=== PATIENT | female | born 1950 | race Caucasian/White ===

== ENCOUNTER 2017-02-04 05:40 | Inpatient (IN) ==
[2017-02-04] MEDS ORDERED: VANCOMYCIN 1,000 MG VIAL ONE (05:55)
[2017-02-04] MEDS ORDERED: SODIUM CHLORIDE 0.9% 100 ML IV ONE (05:55)
[2017-02-04] MEDS ORDERED: ceFAZolin 1,000 MG VIAL ONE (05:55)
[2017-02-04] MEDS ORDERED: VANCOMYCIN INJ 1,000 MG in SODIUM CHLORIDE 0.9% 250 ML IV ONE (06:00)
[2017-02-04] MEDS: LACTATED RINGERS 1,000 ML IV SCH ×3 (06:19→18:02)
[2017-02-04] MEDS ORDERED: TRANEXAMIC ACID 1,000 MG/10 ML VIAL IV ONE (06:54)
[2017-02-04] MEDS ORDERED: PROPOFOL 200 MG/20 ML VIAL IV ONE (07:04)
[2017-02-04] MEDS ORDERED: LIDOCAINE 2% 5 ML VIAL ONE (07:04)
--- NOTE | 2017-02-04 07:08 | History and Physical Update ---
History and Physical Update - History and Physical H&P was reviewed, the patient examined and there: are no changes in the patients condition since last H&P was completed.
[2017-02-04] MEDS ORDERED: diphenhydrAMINE CAP 25 MG CAPSULE PO PRN (07:10)
[2017-02-04] MEDS ORDERED: PROMETHAZINE 25 MG/1 ML VIAL IM PRN (07:10)
[2017-02-04] MEDS ORDERED: HYDROmorphone 2 MG/1 ML VIAL IV PRN (07:10)
[2017-02-04] MEDS ORDERED: ONDANSETRON 4 MG/2 ML VIAL IV PRN (07:10)
[2017-02-04] MEDS ORDERED: MAGNESIUM HYDROXIDE SUSP 30 ML UDCUP PO PRN (07:10)
[2017-02-04] MEDS ORDERED: TEMAZEPAM 7.5 MG CAPSULE PO PRN (07:10)
[2017-02-04] MEDS ORDERED: ROPIVACAINE 0.5% 30 ML VIAL ONE ×2 (08:36→08:37)
[2017-02-04] MEDS ORDERED: BACLOFEN 10 MG TABLET PO SCH (09:00)
[2017-02-04] MEDS ORDERED: amLODIPine 10 MG TABLET PO SCH (09:00)
[2017-02-04] MEDS ORDERED: VENLAFAXINE 75 MG TABLET PO SCH (09:00)
[2017-02-04] MEDS ORDERED: KETAMINE 500 MG/10 ML VIAL ONE (09:06)
[2017-02-04] MEDS ORDERED: MORPHINE 10 MG/10 ML VIAL ONE (09:06)
[2017-02-04] MEDS ORDERED: MIDAZOLAM 2 MG/2 ML VIAL ONE (09:06)
[2017-02-04] MEDS ORDERED: LACTATED RINGERS 1,000 ML IV ONE (09:06)
[2017-02-04] MEDS ORDERED: HYDROmorphone PCA 30 MG/30 ML SYRINGE IV ONE (09:15)
[2017-02-04] MEDS: HYDROmorphone PCA 30 MG/30 ML SYRINGE IV SCH (09:22)
--- NOTE | 2017-02-04 09:36 | XRay Report ---
XR knee 2V RT Indication: Knee arthroplasty Comparison: None available Findings: Right knee arthroplasty has been performed and appears in good alignment. No periprosthetic fracture seen. Impression: Expected postoperative appearance of the right knee. PROCEDURE INTERPRETED AT [facility] DEPARTMENT OF RADIOLOGY Final Report Signed by: Dr. Jonathan Crain
--- NOTE | 2017-02-04 10:22 | Orthopedic Progress Note ---
Orthopedics - Subjective Interval history: Postop check. Good block. Comfortable. Neurovascular intact. Discussed. PT to get up this afternoon Exam - Constitutional Vitals: Period Temp Pulse Resp BP Sys/Mckenna Pulse Ox Last 24 Hr 98 F-98.1 F 60-89 16-20 103-132/56-76 96-100
[2017-02-04] MEDS: ceFAZolin 2,000 MG in PREMIX 1 EACH IV SCH ×2 (14:28→22:34)
[2017-02-04] MEDS: LOSARTAN/HCTZ 50-12.5 MG TABLET PO SCH (14:32)
[2017-02-04] MEDS: PRAVASTATIN 40 MG TABLET PO SCH (14:32)
[2017-02-04] MEDS: CYANOCOBALAMIN 500 MCG TABLET PO SCH (14:42)
[2017-02-04] MEDS: ASPIRIN EC 81 MG TABLET PO SCH (14:42)
[2017-02-04] MEDS: ASCORBIC ACID 500 MG TABLET PO SCH (14:42)
[2017-02-04] MEDS: MULTIVITAMIN (CENTRUM) TABLET PO SCH (14:42)
[2017-02-04] MEDS: CHOLECALCIFEROL 1,000 UNIT TABLET PO SCH (14:43)
[2017-02-04] MEDS: DOCUSATE SODIUM 100 MG CAPSULE PO SCH ×2 (14:55→20:40)
[2017-02-04] MEDS: MELOXICAM 7.5 MG TABLET PO SCH (14:56)
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
[2017-02-04] MEDS ORDERED: hydrOXYzine HCL 25 MG TABLET PO PRN (17:04)
[2017-02-04] MEDS ORDERED: methylPREDNISolone SOD SUC 40 MG/1 ML VIAL IV ONE (17:05)
[2017-02-04] MEDS: VENLAFAXINE 75 MG TABLET PO SCH (20:40)
--- NOTE | 2017-02-05 00:56 | Operative Note ---
DATE OF SURGERY: 02/04/2017 PREOPERATIVE DIAGNOSIS: OSTEOARTHRITIS, RIGHT KNEE. POSTOPERATIVE DIAGNOSIS: SAME. OPERATIVE PROCEDURE: RIGHT TOTAL KNEE ([place]) SURGEON: Aaron Chow Jr., MD CLASS A TRUCK DRIVER: Dr. Hernandez ANESTHESIA: Spinal INDICATION: A 66-year-old white female with longstanding degenerative arthritis to the right knee. She has maximized conservative treatments options to the years including multiple medications and i njection. She has recently decided to proceed with elective arthroplasty of the right knee. OPERATIVE PROCEDURE: The patient was taken to the operating room, and under spinal anesthetic, posi tioned in the supine position. The right leg was positioned, prepped and draped in the usual steril e manner. The limb was elevated and exsanguinated and the tourniquet inflated 250 mmHg. She receiv ed preoperative antibiotic. A midline incision was made anterior aspect of the right knee. Sharp d issection was carried down through skin and subcutaneous tissue. Medial and parapatellar arthrotomy performed. The knee revealed extensive tricompartmental degenerative changes with large effusion. Intramedullary alignment guide was used to make the appropriate cuts about the distal femur and pro ximal tibia. The femur and tibia both were sized to a 5. A 6-mm spacer was selected with PCL retai fiordaliza. The patella resurfaced with a 35 button. After removal of the trial components, the knee was irrigated and all three components were cemented into place. After the cement hardened, the wound wa s closed with over two 1/8 inch Hemovac drains in a standard fashion using #1 Vicryl for the arthrot keri, 2-0 Vicryl for the subcutaneous layer, and ya for skin. Tourniquet was deflated during wo und closure at 33 minutes. Sterile dressing applied. She was taken to the Recovery Room in a stabl e condition.
[2017-02-05] MEDS: FONDAPARINUX 2.5 MG/0.5 ML SYRINGE SUBCUT SCH (02:29)
[2017-02-05] MEDS: LACTATED RINGERS 1,000 ML IV SCH ×3 (02:47→21:59)
[2017-02-05 02:51] LABS: Basophils % 0.3 % (0.0-0.8); Eosinophils # 0.1 10*3/uL (0.0-0.87); Eosinophils % 1.1 % (0.00-10.9); Hematocrit 33.5 VOL% (35.7-47.0); Hemoglobin 11.2 GM/DL (12.0-16.0); Immature Granulocytes % 0.5 %; Immature Granulocytes Absolute 0.06 #; Lymphocytes # 2.3 10*3/uL (1.4-4.0); Lymphocytes % 17.7 % (21.3-54.2); Mean Corpuscular HGB Conc 33.4 GM/DL (32-36); Mean Corpuscular Hemoglobin 32 PG (27-34); Mean Corpuscular Volume 94.4 FL (87-102); Mean Platelet Volume 9.8 FL (9.6-12.0); Monocytes # 1.3 10*3/uL (0.11-0.8); Monocytes % 10.4 % (1.7-12.7); Neutrophils # 8.9 10*3/uL (1.4-7.4); Platelet Count 223 T/CUMM (130-400); Red Blood Count 3.55 MC/CUMM (3.8-5.5); Red Cell Distribution Width 12.3 % (9.3-17.3); White Blood Count 12.7 T/CUMM (4-12)
[2017-02-05 03:12] LABS: Calcium 8.5 MG/DL (8.5-10.1); Osmolality,Calculated 274.8 MOS/KG (273-304)
[2017-02-05] MEDS: HYDROmorphone PCA 30 MG/30 ML SYRINGE IV SCH (07:50)
--- NOTE | 2017-02-05 08:38 | Orthopedic Progress Note ---
Orthopedics - Subjective Interval history: Comfortable already up in chair drain removed hemoglobin 11.2. nvi, Ready to start PT wishing to go home with home health early next week. Exam - Constitutional Vitals: Period Temp Pulse Resp BP Sys/Mckenna Pulse Ox Last 24 Hr 97.9 F-101.1 F 60-109 14-20 105-157/54-83 90-100 Results - Labs CBC & BMP: 02/05/17 02:17 02/05/17 02:17
--- NOTE | 2017-02-05 09:41 | Family Practice Progress Note ---
Family Practice - PN: Subj Interval history: Patient seen this morning. She is stable doing well she is having the right knee pain. Her hemoglobin hematocrit 11 and 33.5. Blood sugars are normal. Patient is very alert and oriented in good spirits otherwise. She has been going to the bathroom without difficulty. Her vital signs are stable except for slight elevation of pulse rate 106. Afebrile this morning Exam (Progress Note) - Constitutional Vitals: Period Temp Pulse Resp BP Sys/Mckenna Pulse Ox Last 24 Hr 97.9 F-101.1 F 60-109 14-20 114-157/54-83 90-98 Exam: Physical exam grossly unchanged. HEENT is negative Cardiovascular is regular no gallop or rub Lungs clear patient is using the incentive spirometry Abdomen soft nondistended Extremities no clubbing cyanosis and she does have brace on the right knee with a clean and dry Dressing Results - Labs CBC & BMP: 02/05/17 02:17 02/05/17 02:17 Assessment and Plan (1) Status post right total knee replacement Status: Acute Assessment and plan: 02/05/2017 the right knee is doing well. She is having moderate pain but well controlled with medication Current Visit: Yes (2) Type 2 diabetes mellitus diet controlled Status: Chronic Assessment and plan: 02/03/2017: Blood sugars are good Current Visit: Yes
[2017-02-05] MEDS: CYANOCOBALAMIN 500 MCG TABLET PO SCH (09:45)
[2017-02-05] MEDS: LOSARTAN/HCTZ 50-12.5 MG TABLET PO SCH (09:47)
[2017-02-05] MEDS: PRAVASTATIN 40 MG TABLET PO SCH (09:47)
[2017-02-05] MEDS: MELOXICAM 7.5 MG TABLET PO SCH (09:48)
[2017-02-05] MEDS: ASPIRIN EC 81 MG TABLET PO SCH (09:48)
[2017-02-05] MEDS: CHOLECALCIFEROL 1,000 UNIT TABLET PO SCH (09:48)
[2017-02-05] MEDS: DOCUSATE SODIUM 100 MG CAPSULE PO SCH ×2 (09:48→20:40)
[2017-02-05] MEDS: ASCORBIC ACID 500 MG TABLET PO SCH (09:48)
[2017-02-05] MEDS: MULTIVITAMIN (CENTRUM) TABLET PO SCH (09:48)
[2017-02-05] MEDS: BACLOFEN 10 MG TABLET PO SCH (20:40)
[2017-02-05] MEDS: amLODIPine 10 MG TABLET PO SCH (20:40)
[2017-02-05] MEDS: VENLAFAXINE 75 MG TABLET PO SCH (20:40)
[2017-02-05] MEDS ORDERED: VENLAFAXINE XR 75 MG CAPSULE PO SCH (21:00)
[2017-02-06] MEDS: FONDAPARINUX 2.5 MG/0.5 ML SYRINGE SUBCUT SCH (01:23)
[2017-02-06 04:36] LABS: Basophils % 0.2 % (0.0-0.8); Eosinophils # 0.1 10*3/uL (0.0-0.87); Eosinophils % 0.9 % (0.00-10.9); Hematocrit 32.4 VOL% (35.7-47.0); Hemoglobin 10.7 GM/DL (12.0-16.0); Immature Granulocytes % 0.5 %; Immature Granulocytes Absolute 0.06 #; Lymphocytes # 1.6 10*3/uL (1.4-4.0); Lymphocytes % 13.9 % (21.3-54.2); Mean Corpuscular Hemoglobin 32 PG (27-34); Mean Corpuscular Volume 95.9 FL (87-102); Mean Platelet Volume 9.8 FL (9.6-12.0); Monocytes # 1.3 10*3/uL (0.11-0.8); Monocytes % 10.9 % (1.7-12.7); Neutrophils # 8.5 10*3/uL (1.4-7.4); Neutrophils % 73.6 % (38.7-73.9); Platelet Count 202 T/CUMM (130-400); Red Blood Count 3.38 MC/CUMM (3.8-5.5); Red Cell Distribution Width 12.1 % (9.3-17.3); White Blood Count 11.6 T/CUMM (4-12)
--- NOTE | 2017-02-06 10:19 | Family Practice Progress Note ---
Family Practice - PN: Subj Interval history: Patient stable no acute distress. Her knee is much better this morning she is able to angulate some and the pain is tolerable. H&H is 10 and 32 and stable and her blood sugars are normal. She is in good spirits Exam (Progress Note) - Constitutional Vitals: Period Temp Pulse Resp BP Sys/Mckenna Pulse Ox Last 24 Hr 99.1 F-100.5 F 94-102 16-20 130-160/56-77 91-97 Exam: Physical exam grossly unchanged. HEENT is negative Cardiovascular is regular no gallop or rub Lungs clear patient is using the incentive spirometry Abdomen soft nondistended Extremities no clubbing cyanosis and she does have brace on the right knee with a clean and dry Results - Labs CBC & BMP: 02/06/17 04:03 02/05/17 02:17 Assessment and Plan (1) Status post right total knee replacement Status: Acute Assessment and plan: 02/05/2017 the right knee is doing well. She is having moderate pain but well controlled with medication 02/06/2017 she is improving slowly on leg is without any significant pain Current Visit: Yes (2) Type 2 diabetes mellitus diet controlled Status: Chronic Assessment and plan: 02/03/2017: Blood sugars are good Current Visit: Yes
--- NOTE | 2017-02-06 10:27 | Orthopedic Progress Note ---
Orthopedics - Subjective Interval history: Doing well with PT. DIRECTOR MEDICAL today pain well controlled with p.o. Continue rehab. to home with home health soon Exam - Constitutional Vitals: Period Temp Pulse Resp BP Sys/Mckenna Pulse Ox Last 24 Hr 99.1 F-100.5 F 94-102 16-20 130-160/56-77 91-97 Results - Labs CBC & BMP: 02/06/17 04:03 02/05/17 02:17
[2017-02-06] MEDS: MELOXICAM 7.5 MG TABLET PO SCH (11:30)
[2017-02-06] MEDS: CHOLECALCIFEROL 1,000 UNIT TABLET PO SCH (11:30)
[2017-02-06] MEDS: MULTIVITAMIN (CENTRUM) TABLET PO SCH (11:32)
[2017-02-06] MEDS: DOCUSATE SODIUM 100 MG CAPSULE PO SCH ×2 (11:32→20:27)
[2017-02-06] MEDS: ASCORBIC ACID 500 MG TABLET PO SCH (11:32)
[2017-02-06] MEDS: ASPIRIN EC 81 MG TABLET PO SCH (11:33)
[2017-02-06] MEDS: LOSARTAN/HCTZ 50-12.5 MG TABLET PO SCH (11:34)
[2017-02-06] MEDS: PRAVASTATIN 40 MG TABLET PO SCH (11:34)
[2017-02-06] MEDS: CYANOCOBALAMIN 500 MCG TABLET PO SCH (12:06)
[2017-02-06] MEDS: HYDROmorphone PCA 30 MG/30 ML SYRINGE IV SCH (13:07)
[2017-02-06] MEDS: VENLAFAXINE 75 MG TABLET PO SCH (20:26)
[2017-02-06] MEDS: amLODIPine 10 MG TABLET PO SCH (20:27)
[2017-02-06] MEDS: BACLOFEN 10 MG TABLET PO SCH (20:27)
[2017-02-07] MEDS: FONDAPARINUX 2.5 MG/0.5 ML SYRINGE SUBCUT SCH (02:33)
[2017-02-07] MEDS: CHOLECALCIFEROL 1,000 UNIT TABLET PO SCH (08:59)
[2017-02-07] MEDS: MULTIVITAMIN (CENTRUM) TABLET PO SCH (08:59)
[2017-02-07] MEDS: CYANOCOBALAMIN 500 MCG TABLET PO SCH (08:59)
[2017-02-07] MEDS: ASPIRIN EC 81 MG TABLET PO SCH (09:00)
[2017-02-07] MEDS: LOSARTAN/HCTZ 50-12.5 MG TABLET PO SCH (09:00)
[2017-02-07] MEDS: DOCUSATE SODIUM 100 MG CAPSULE PO SCH (09:00)
[2017-02-07] MEDS: MELOXICAM 7.5 MG TABLET PO SCH (09:00)
[2017-02-07] MEDS: ASCORBIC ACID 500 MG TABLET PO SCH (09:00)
[2017-02-07] MEDS: PRAVASTATIN 40 MG TABLET PO SCH (09:01)
--- NOTE | 2017-02-07 10:06 | Physician Query Form ---
CLICK EDIT DOCUMENT TO SELECT QUERY ANSWER --> OK --> SIGN Elma Batista RN Clinical Day Care Teacher W) [phone] (f) [phone] [email or web address] PROVIDERS: Make your selection(s) from the choices in EACH section by typing an "x" and enter comments in the comment section. Please use your independent medical judgment in providing your response. This request does not imply that any particular answer is desired or expected. 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 [facility]
--- NOTE | 2017-02-07 10:20 | Pathology Report from [facility] ---
ACCESSION # : [id number] PATIENT NAME : Sunny Moe ORDERING DR : PRIYANKA NOVAK JR, MD CLINICAL HX: Right knee osteoarthritis POST-OP DX: Same SPECIMEN INFO: Right knee bone and tissue GROSS DESCRIPTION: The specimen is received in formalin labeled with the patient 's name and consists of fragments of bone, cartilage and soft tissue measuring approximately 13.8 x 14.9 cm. The articular surfaces are grossly degenerative with subchondral eburnation present measuring up to 1.4 cm as well as serosal cartilage lipping. Supervisor Poultry Processing tissue submitted in one cassette. DIAGNOSIS FOR SUNNY MOE: RIGHT KNEE BONE AND TISSUE: Gross and microscopic findings consistent with osteoarthritis. SERVICE DATE: 02/04/2017 REPORT DATE: 02/07/2017 PATHOLOGIST: Yo Benavides III, M.D. MTDD
--- NOTE | 2017-02-07 11:15 | Orthopedic Progress Note ---
Orthopedics - Subjective Interval history: Doing well ready for home health discharged today Exam - Constitutional Vitals: Period Temp Pulse Resp BP Sys/Mckenna Pulse Ox Last 24 Hr 97.8 F-99.0 F 83-93 16-20 123-141/62-69 90-97 Results - Labs CBC & BMP: 02/06/17 04:03 02/05/17 02:17 Specialty Discharge - Follow Up or Referrals
--- NOTE | 2017-02-07 11:18 | Discharge Summary ---
Hospital Course - Hospital Course Hospital Course: Admitted for elective right total knee uncomplicated course discharged home Diagnosis - Discharge Diagnosis (1) Osteoarthritis of right knee Status: Acute Specialty Discharge - Follow Up or Referrals Discharge Plan - Discharge Data Disposition: Home Health Service Condition at Discharge: Stable Discharge Diet: advance to your usual diet Activity: ambulate only with your walker, as per physical therapy Hygiene: may shower, keep area(s) dry Weight Bearing at Discharge: weight bear as tolerated Driving: not until seen by doctor - Discharge Medications New HYDROcodone/ACETAMIN 7.5-325 [[place] 7.5-325] 1 tablet PO Q4H PRN #30 tablet PRN Reason: Pain Moderate (4-7) Continue Meloxicam 15 mg PO DAILY Aspirin EC Tab 81 mg PO DAILY Amlodipine Besylate 10 mg PO DAILY Cyanocobalamin (Vitamin B-12) [Vitamin B12] 2,500 mcg PO DAILY Cholecalciferol (Vitamin D3) [Vitamin D3] 2,000 unit PO DAILY Ascorbic Acid Tab [Vitamin C Tab] 500 mg PO DAILY Multivitamin [Multivitamins] 1 each PO DAILY Losartan/Hydrochlorothiazide [Losartan-Hctz 100-25 mg Tab] 1 each PO DAILY Pravastatin Sodium 40 mg PO DAILY Baclofen 10 mg PO DAILY Venlafaxine HCl [Effexor XR] 150 mg PO BEDTIME - Follow Up or Referral - Forms/Instructions Instructions: Total Knee Replacement (DC) Additional Discharge Instructions: Discharged home with home health continue home medications including aspirin 325 mg once a day diet as tolerated [place] for pain weightbearing as tolerated with home health and routine knee replacement protocol with CPM. Give Arixtra dose prior to discharge. Jeanna to be removed and wound Steri-Stripped February 18. Follow-up 4 weeks Exam - Constitutional Vitals: Period Temp Pulse Resp BP Sys/Mckenna Pulse Ox Last 24 Hr 97.8 F-99.0 F 83-93 16-20 123-141/62-69 90-97 Discharge Results Labs on day of discharge: Labs from last 24 hours 02/07/17 02/06/17 06:52 20:25 POC Glucose 105 112 H DS: Provider Date of admission: 02/04/17 05:40 Primary care physician: Mitch Schwab DO Attending physician on admission: Aaron Chow Jr., MD Consults: 02/04/17 07:10 Consult to Case Mgmt/Social Srvs [CONS] Routine Reason for Case Mgmt/Social Srvs: Rehab Home Health Equipment Consult Comment: Bedside Commode, CPM; Del to Room 319; Pt 5ft 4in 236lbs Consult to Occupational Therapy [CONS] Routine Reason for Occupational Therapy: Evaluate and Treat Consult Comment: ADL's Consult to Physical Therapy [CONS] Routine Reason for Physical Therapy: Evaluate and Treat Gait Training 02/04/17 07:12 Consult to Physician [CONS] Routine Comment: Consulting Provider: Mitch Schwab Consulting Provider Notified: Yes When should Consulting Provider be notified: Now Person Notified: antoine red Date Notified: 02/04/17 Time Notified: 10:39 02/04/17 10:13 Consult to Pastoral Services [CONS] Routine Comment: Pastoral Screen: Request Director Of Exhibit Development Visit Pastoral Screen Source of Request: Patient 02/04/17 11:16 Consult to Pharmacy [CONS] Routine Reason for Pharmacy Consult: Adjust Meds Renal Funct 02/04/17 13:58 Consult to Physical Therapy [CONS] Routine Reason for Physical Therapy: Other Consult Comment: Deliver Standard Walker to Pt's room 319 before discharged home Discharging clinician: Aaron Chow Jr., MD
[2017-02-07 11:29] VITALS: BP 131/56
== END 2017-02-07 13:19 | disposition home health service (06) | DRG 470 ==
LOC: N.SDSINP 05:40 → N.3E 09:47
PROVIDERS: ADMIT Orthopaedic Surgery; ATTEND Orthopaedic Surgery

== ENCOUNTER 2017-11-29 05:49 | Inpatient (IN) ==
[2017-11-29] MEDS ORDERED: ceFAZolin 1,000 MG in SYRINGE 1 EACH IV ONE (06:00)
[2017-11-29] MEDS ORDERED: VANCOMYCIN INJ 1,000 MG in SODIUM CHLORIDE 0.9% 250 ML IV ONE (06:00)
[2017-11-29] MEDS ORDERED: VANCOMYCIN 1,000 MG VIAL ONE (06:35)
[2017-11-29] MEDS ORDERED: ceFAZolin 1,000 MG VIAL ONE (06:35)
[2017-11-29] MEDS ORDERED: TRANEXAMIC ACID 1,000 MG/10 ML VIAL IV ONE (06:56)
[2017-11-29] MEDS ORDERED: LACTATED RINGERS 1,000 ML IV SCH (07:00)
[2017-11-29] MEDS ORDERED: BISACODYL 10 MG SUPP RECTAL PRN (07:05)
[2017-11-29] MEDS ORDERED: diphenhydrAMINE CAP 25 MG CAPSULE PO PRN (07:05)
[2017-11-29] MEDS ORDERED: PROMETHAZINE 25 MG/1 ML VIAL IM PRN (07:05)
[2017-11-29] MEDS ORDERED: ONDANSETRON 4 MG/2 ML VIAL IV PRN (07:05)
[2017-11-29] MEDS ORDERED: NALOXONE 0.4 MG/ML VIAL IV PRN (07:05)
[2017-11-29] MEDS ORDERED: LACTULOSE 20 GM/30 ML UDCUP PO PRN (07:05)
[2017-11-29] MEDS ORDERED: MAGNESIUM HYDROXIDE SUSP 30 ML UDCUP PO PRN (07:05)
[2017-11-29] MEDS ORDERED: MORPHINE 2 MG/1 ML SYRINGE IV PRN ×2 (07:05→11:22)
[2017-11-29] MEDS ORDERED: TEMAZEPAM 7.5 MG CAPSULE PO PRN (07:05)
[2017-11-29] MEDS ORDERED: ROPIVACAINE 0.5% 30 ML VIAL ONE (08:39)
[2017-11-29] MEDS ORDERED: MORPHINE PCA 30 MG/30 ML SYRINGE IV ONE (09:20)
[2017-11-29] MEDS: MORPHINE PCA 30 MG/30 ML SYRINGE IV SCH (09:22)
[2017-11-29] MEDS ORDERED: PROPOFOL 500 MG/50 ML BOTTLE IV ONE (12:19)
[2017-11-29] MEDS ORDERED: PROPOFOL 200 MG/20 ML VIAL IV ONE (12:19)
[2017-11-29] MEDS ORDERED: KETAMINE 500 MG/10 ML VIAL ONE (12:19)
[2017-11-29] MEDS ORDERED: MIDAZOLAM 2 MG/2 ML VIAL ONE (12:19)
[2017-11-29] MEDS: MULTIVITAMIN (CENTRUM) TABLET PO SCH (15:40)
[2017-11-29] MEDS: MULTIVITAMIN (BEROCCA) TABLET PO SCH (15:40)
[2017-11-29] MEDS: ASPIRIN EC 81 MG TABLET PO SCH (15:40)
[2017-11-29] MEDS: PRAVASTATIN 40 MG TABLET PO SCH (15:41)
[2017-11-29] MEDS: GABAPENTIN 100 MG CAPSULE PO SCH ×2 (15:41→21:23)
[2017-11-29] MEDS: ASCORBIC ACID 500 MG TABLET PO SCH (15:41)
[2017-11-29] MEDS: NAPROXEN 500 MG TABLET PO SCH ×2 (15:41→21:23)
[2017-11-29] MEDS: DOCUSATE SODIUM 100 MG CAPSULE PO SCH ×2 (15:41→21:23)
[2017-11-29] MEDS: LOSARTAN/HCTZ 50-12.5 MG TABLET PO SCH (15:41)
[2017-11-29] MEDS: CHOLECALCIFEROL 1,000 UNIT TABLET PO SCH (15:41)
[2017-11-29] MEDS: FONDAPARINUX 2.5 MG/0.5 ML SYRINGE SUBCUT SCH (17:50)
[2017-11-29] MEDS: INSULIN LISPRO 100 UNIT/ML SUBCUT SCH (20:06)
[2017-11-29] MEDS: BACLOFEN 10 MG TABLET PO SCH (21:23)
[2017-11-29] MEDS: amLODIPine 10 MG TABLET PO SCH (21:23)
[2017-11-29] MEDS: VENLAFAXINE XR 75 MG CAPSULE PO SCH (21:23)
[2017-11-30 06:21] LABS: Basophils % 0.3 % (0.0-0.8); Eosinophils # 0.4 10*3/uL (0.0-0.87); Eosinophils % 3.6 % (0.00-10.9); Hematocrit 33.6 VOL% (35.7-47.0); Hemoglobin 11.1 GM/DL (12.0-16.0); Immature Granulocytes % 0.4 %; Immature Granulocytes Absolute 0.05 #; Lymphocytes # 2.2 10*3/uL (1.4-4.0); Lymphocytes % 18.5 % (21.3-54.2); Mean Corpuscular Hemoglobin 32 PG (27-34); Mean Corpuscular Volume 95.5 FL (87-102); Mean Platelet Volume 10.1 FL (9.6-12.0); Monocytes # 1.2 10*3/uL (0.11-0.8); Monocytes % 10.3 % (1.7-12.7); Neutrophils % 66.9 % (38.7-73.9); Platelet Count 212 T/CUMM (130-400); Red Blood Count 3.52 MC/CUMM (3.8-5.5); Red Cell Distribution Width 12.8 % (9.3-17.3); White Blood Count 11.9 T/CUMM (4-12)
[2017-11-30 07:00] LABS: Calcium 8.4 MG/DL (8.5-10.1); Osmolality,Calculated 279.4 MOS/KG (273-304); Potassium 4.1 MMOL/L (3.5-5.1)
[2017-11-30] MEDS: INSULIN LISPRO 100 UNIT/ML SUBCUT SCH ×4 (09:55→21:58)
[2017-11-30] MEDS: MULTIVITAMIN (BEROCCA) TABLET PO SCH (09:57)
[2017-11-30] MEDS: DOCUSATE SODIUM 100 MG CAPSULE PO SCH ×2 (09:57→21:58)
[2017-11-30] MEDS: MULTIVITAMIN (CENTRUM) TABLET PO SCH (09:57)
[2017-11-30] MEDS: ASPIRIN EC 81 MG TABLET PO SCH (09:57)
[2017-11-30] MEDS: LOSARTAN/HCTZ 50-12.5 MG TABLET PO SCH (09:58)
[2017-11-30] MEDS: CHOLECALCIFEROL 1,000 UNIT TABLET PO SCH (09:58)
[2017-11-30] MEDS: PRAVASTATIN 40 MG TABLET PO SCH (09:58)
[2017-11-30] MEDS: NAPROXEN 500 MG TABLET PO SCH ×2 (09:58→21:58)
[2017-11-30] MEDS: GABAPENTIN 100 MG CAPSULE PO SCH ×2 (09:58→21:58)
[2017-11-30] MEDS: ASCORBIC ACID 500 MG TABLET PO SCH (09:58)
[2017-11-30] MEDS: FONDAPARINUX 2.5 MG/0.5 ML SYRINGE SUBCUT SCH (18:11)
[2017-11-30] MEDS: VENLAFAXINE XR 75 MG CAPSULE PO SCH (21:57)
[2017-11-30] MEDS: amLODIPine 10 MG TABLET PO SCH (21:58)
[2017-11-30] MEDS: BACLOFEN 10 MG TABLET PO SCH (21:58)
[2017-12-01 06:56] LABS: Calcium 8.3 MG/DL (8.5-10.1); Osmolality,Calculated 282.3 MOS/KG (273-304)
[2017-12-01] MEDS: INSULIN LISPRO 100 UNIT/ML SUBCUT SCH ×2 (07:36→11:28)
[2017-12-01] MEDS: DOCUSATE SODIUM 100 MG CAPSULE PO SCH (09:16)
[2017-12-01] MEDS: PRAVASTATIN 40 MG TABLET PO SCH (09:16)
[2017-12-01] MEDS: NAPROXEN 500 MG TABLET PO SCH (09:16)
[2017-12-01] MEDS: CHOLECALCIFEROL 1,000 UNIT TABLET PO SCH (09:16)
[2017-12-01] MEDS: LOSARTAN/HCTZ 50-12.5 MG TABLET PO SCH (09:16)
[2017-12-01] MEDS: MULTIVITAMIN (BEROCCA) TABLET PO SCH (09:16)
[2017-12-01] MEDS: GABAPENTIN 100 MG CAPSULE PO SCH (09:16)
[2017-12-01] MEDS: ASPIRIN EC 81 MG TABLET PO SCH (09:16)
[2017-12-01] MEDS: MULTIVITAMIN (CENTRUM) TABLET PO SCH (09:16)
[2017-12-01] MEDS: ASCORBIC ACID 500 MG TABLET PO SCH (09:16)
[2017-12-01 11:24] VITALS: BP 165/67
[2017-12-01] MEDS: FONDAPARINUX 2.5 MG/0.5 ML SYRINGE SUBCUT SCH (13:55)
[2017-12-01] MEDS: MORPHINE PCA 30 MG/30 ML SYRINGE IV SCH (14:22)
== END 2017-12-01 13:57 | disposition home health service (06) | DRG 470 ==
LOC: N.SDSINP 05:49 → N.3E 09:53
PROVIDERS: ADMIT Orthopaedic Surgery; ATTEND Orthopaedic Surgery

== ENCOUNTER 2020-08-08 10:23 | Inpatient (IN) ==
[2020-08-08 11:00] LABS: Basophils # 0.1 10*3/uL (0.0-0.2); Basophils % 0.6 % (0.0-0.8); Eosinophils # 0.1 10*3/uL (0.0-0.87); Eosinophils % 1.3 % (0.00-10.9); Hematocrit 39.5 VOL% (35.7-47.0); Hemoglobin 12.6 GM/DL (12.0-16.0); Immature Granulocytes % 1.4 %; Immature Granulocytes Absolute 0.13 #; Lymphocytes # 2.5 10*3/uL (1.4-4.0); Lymphocytes % 25.6 % (21.3-54.2); Mean Corpuscular HGB Conc 31.9 GM/DL (32-36); Mean Corpuscular Volume 96.1 FL (87-102); Mean Platelet Volume 9.3 FL (9.6-12.0); Monocytes % 7.4 % (1.7-12.7); Neutrophils % 63.7 % (38.7-73.9); PT Patient Result 10.8 SECS (9.8-11.9); Partial Thromboplastin Time 29.1 SECS (23.9-33.8); Platelet Count 282 T/CUMM (130-400); Red Blood Count 4.11 MC/CUMM (3.8-5.5); White Blood Count 9.6 T/CUMM (4-12)
[2020-08-08] MEDS ORDERED: DILTIAZEM 50 MG/10 ML VIAL IV STA ×2 (11:18→11:46)
[2020-08-08] MEDS ORDERED: dilTIAZem Drip 125 MG/125 ML PREMIX IV ONE (11:20)
[2020-08-08 11:21] LABS: Calcium 10.2 MG/DL (8.5-10.1); Total Protein 8.3 G/DL (6.4-8.3)
[2020-08-08] MEDS: dilTIAZem Drip 125 MG/125 ML PREMIX IV SCH ×2 (11:46→16:32)
[2020-08-08] MEDS ORDERED: ACETAMINOPHEN 325 MG TABLET PO PRN (13:13)
[2020-08-08] MEDS ORDERED: ONDANSETRON 4 MG/2 ML VIAL IV PRN (13:13)
[2020-08-08] MEDS: SODIUM CHLORIDE 0.9% 1,000 ML IV SCH ×2 (13:53→22:33)
[2020-08-08] MEDS ORDERED: INFLUENZA VIRUS VACCINE 0.5 ML SYRINGE IM ONE (14:04)
[2020-08-08] MEDS ORDERED: POTASSIUM CHLORIDE 20 MEQ TABLET PO ONE (14:57)
[2020-08-08] MEDS ORDERED: ASCORBIC ACID 500 MG TABLET PO SCH (15:23)
[2020-08-08] MEDS: ENOXAPARIN 120 MG/0.8 ML SYRINGE SUBCUT SCH (15:41)
[2020-08-08] MEDS: METOPROLOL SUCCINATE XL 50 MG TABLET PO SCH ×2 (15:42→21:38)
[2020-08-08 16:01] LABS: Bilirubin,Urine Negative (Negative); Blood, Urine Negative (Negative); Glucose,Urine (UA) Negative (Negative); Ketones,Urine Negative (Negative); Nitrite,Urine Negative (Negative); Protein,Urine Negative; RBC,Urine 1 /HPF (0-4); Urine Appearance CLEAR (Clear); Urine Color Yellow (Yellow); Urine Specific Gravity 1.008 (1.001-1.035); Urine Urobilinogen < 2.0 EU/DL (0.2-1.0); WBC,Urine 1 /HPF (0-6)
[2020-08-08] MEDS ORDERED: ENOXAPARIN 40 MG/0.4 ML SYRINGE SUBCUT SCH (21:00)
[2020-08-08] MEDS: VENLAFAXINE XR 75 MG CAPSULE PO SCH (21:36)
[2020-08-08] MEDS: BACLOFEN 10 MG TABLET PO SCH (21:38)
[2020-08-08] MEDS: DOCUSATE SODIUM 100 MG CAPSULE PO SCH (21:38)
[2020-08-08] MEDS: ASCORBIC ACID 500 MG TABLET PO SCH (22:32)
[2020-08-09] MEDS: ENOXAPARIN 120 MG/0.8 ML SYRINGE SUBCUT SCH (04:01)
[2020-08-09] MEDS: SODIUM CHLORIDE 0.9% 1,000 ML IV SCH (07:46)
[2020-08-09] MEDS: dilTIAZem Drip 125 MG/125 ML PREMIX IV SCH (08:00)
[2020-08-09] MEDS ORDERED: LOSARTAN 50 MG TABLET PO SCH (09:00)
[2020-08-09] MEDS ORDERED: SIMVASTATIN 20 MG TABLET PO SCH (09:00)
[2020-08-09] MEDS: MELOXICAM 7.5 MG TABLET PO SCH (09:12)
[2020-08-09] MEDS: MULTIVITAMIN (BEROCCA) TABLET PO SCH (09:12)
[2020-08-09] MEDS: MULTIVITAMIN (CENTRUM) TABLET PO SCH (09:12)
[2020-08-09] MEDS: CHOLECALCIFEROL 1,000 UNIT TABLET PO SCH (09:13)
[2020-08-09] MEDS: ASCORBIC ACID 500 MG TABLET PO SCH ×3 (09:13→22:18)
[2020-08-09] MEDS: hydroCHLOROthiazide 25 MG TABLET PO SCH (09:13)
[2020-08-09] MEDS: PANTOPRAZOLE 40 MG TABLET PO SCH (09:13)
[2020-08-09] MEDS: LOSARTAN 50 MG TABLET PO SCH (09:13)
[2020-08-09] MEDS: DOCUSATE SODIUM 100 MG CAPSULE PO SCH ×2 (09:14→22:20)
[2020-08-09] MEDS: METOPROLOL SUCCINATE XL 50 MG TABLET PO SCH (09:14)
[2020-08-09] MEDS: ASPIRIN EC 81 MG TABLET PO SCH (09:14)
[2020-08-09] MEDS ORDERED: DIGOXIN 0.5 MG/2 ML AMP IV ONE (10:26)
[2020-08-09] MEDS ORDERED: METOPROLOL SUCCINATE XL 25 MG TABLET PO ONE (10:39)
[2020-08-09] MEDS ORDERED: DILTIAZEM 60 MG TABLET PO SCH (10:45)
[2020-08-09] MEDS: DILTIAZEM CD 120 MG CAPSULE PO SCH ×2 (10:58→22:20)
[2020-08-09] MEDS ORDERED: METOPROLOL SUCCINATE XL 25 MG TABLET PO SCH (21:00)
[2020-08-09] MEDS: VENLAFAXINE XR 75 MG CAPSULE PO SCH (22:19)
[2020-08-09] MEDS: APIXABAN 5 MG TABLET PO SCH (22:19)
[2020-08-09] MEDS: BACLOFEN 10 MG TABLET PO SCH (22:27)
[2020-08-10] MEDS: SODIUM CHLORIDE 0.9% 1,000 ML IV SCH ×4 (05:32→23:17)
[2020-08-10] MEDS: MULTIVITAMIN (CENTRUM) TABLET PO SCH (11:31)
[2020-08-10] MEDS: MELOXICAM 7.5 MG TABLET PO SCH (11:31)
[2020-08-10] MEDS: DOCUSATE SODIUM 100 MG CAPSULE PO SCH ×2 (11:31→22:11)
[2020-08-10] MEDS: hydroCHLOROthiazide 25 MG TABLET PO SCH (11:31)
[2020-08-10] MEDS: CHOLECALCIFEROL 1,000 UNIT TABLET PO SCH (11:31)
[2020-08-10] MEDS: DILTIAZEM CD 120 MG CAPSULE PO SCH ×2 (11:32→22:12)
[2020-08-10] MEDS: ASCORBIC ACID 500 MG TABLET PO SCH ×3 (11:32→22:13)
[2020-08-10] MEDS: MULTIVITAMIN (BEROCCA) TABLET PO SCH (11:32)
[2020-08-10] MEDS: METOPROLOL SUCCINATE XL 100 MG TABLET PO SCH ×2 (11:32→22:13)
[2020-08-10] MEDS: LOSARTAN 50 MG TABLET PO SCH (11:32)
[2020-08-10] MEDS: ASPIRIN EC 81 MG TABLET PO SCH (11:33)
[2020-08-10] MEDS: PANTOPRAZOLE 40 MG TABLET PO SCH (11:33)
[2020-08-10] MEDS: APIXABAN 5 MG TABLET PO SCH ×2 (11:33→22:12)
[2020-08-10] MEDS: BACLOFEN 10 MG TABLET PO SCH (22:12)
[2020-08-10] MEDS: VENLAFAXINE XR 75 MG CAPSULE PO SCH (22:12)
[2020-08-11] MEDS: SODIUM CHLORIDE 0.9% 1,000 ML IV SCH (06:09)
[2020-08-11 08:43] VITALS: BP 135/87
[2020-08-11] MEDS: MULTIVITAMIN (BEROCCA) TABLET PO SCH (10:19)
[2020-08-11] MEDS: MELOXICAM 7.5 MG TABLET PO SCH (10:19)
[2020-08-11] MEDS: ASPIRIN EC 81 MG TABLET PO SCH (10:20)
[2020-08-11] MEDS: ASCORBIC ACID 500 MG TABLET PO SCH ×2 (10:20→10:25)
[2020-08-11] MEDS: APIXABAN 5 MG TABLET PO SCH (10:20)
[2020-08-11] MEDS: DILTIAZEM CD 120 MG CAPSULE PO SCH (10:21)
[2020-08-11] MEDS: MULTIVITAMIN (CENTRUM) TABLET PO SCH (10:21)
[2020-08-11] MEDS: PANTOPRAZOLE 40 MG TABLET PO SCH (10:21)
[2020-08-11] MEDS: DOCUSATE SODIUM 100 MG CAPSULE PO SCH (10:21)
[2020-08-11] MEDS: hydroCHLOROthiazide 25 MG TABLET PO SCH (10:21)
[2020-08-11] MEDS: METOPROLOL SUCCINATE XL 100 MG TABLET PO SCH (10:22)
[2020-08-11] MEDS: LOSARTAN 50 MG TABLET PO SCH (10:23)
[2020-08-11] MEDS: CHOLECALCIFEROL 1,000 UNIT TABLET PO SCH (10:25)
== END 2020-08-11 12:01 | disposition home or self-care (01) | DRG 309 ==
LOC: N.ED 10:23 → N.EDINP 11:34 → N.TELES 13:15
PROVIDERS: ADMIT Family Medicine; ATTEND Family Medicine